=== PATIENT | female | born 1985 | race African-American/Black ===

== ENCOUNTER 2022-09-12 08:38 | Emergency (ER) | payer OTHER, SELFPAY ==
[2022-09-12] VITALS (9 sets, daily range): BP systolic 107–122; BP diastolic 73–81; PULSE 76–92; RESP 17–25; TEMP 36.4–36.6; O2SAT 74–100
[2022-09-12] MEDS: LACTATED RINGERS 1,000 ML 100 ML IV CONT (08:58)
--- NOTE | 2022-09-12 09:05 | ED.GENADULT ---
HPI - General Adult General Chief complaint: Unspecified Stated complaint: sickle cell crisis Time Seen by Provider: 09/12/22 09:05 Source: patient Mode of arrival: ambulatory Limitations: no limitations History of Present Illness HPI narrative: 37-year-old female who is diagnosed with sickle cell disease since , 16 weeks , History of pulmonary embolism on Lovenox presents to the ER with A 2 week history of -- pain in her arms and legs. she feels it is similar to her vaso-occlusive crisis pain. The patient has the history of sickle cell anemia and has had her last transfusion in 2019. She has monthly pain episodes which have improved still she became . Patient is not on any prophylactic medication. No recent fever. No chest pain or shortness of breath. the patient is A2. 1st was a miscarriage. Second progressed to 32 weeks and complicated by preeclampsia leading to early delivery. Third was medical termination of . The patient had 3 ultrasounds and did not note any abnormality. Onset (ago): week(s) ( symptoms started 2 weeks ago.) Location: upper extremity and lower extremity Radiation: non-radiation Severity: severe Quality: aching Pain Consistency: constant Relieving factors: none Exacerbating factors: none Associated symptoms: denies other symptoms Treatments prior to arrival: none Related Data Home Medications Medication Instructions Recorded Confirmed Unable to Obtain Home Medications 09/12/22 09/12/22 Allergies Allergy/AdvReac Type Severity Reaction Status Date / Time No Known Allergies Allergy Verified 09/12/22 08:46 Review of Systems Review of Systems: All systems reviewed & are unremarkable except as noted in HPI and below Constitutional: Constitutional: Reports as per HPI, Reports no additional constitutional complaints, Reports body ache(s) and Reports malaise Eyes: Eyes: Reports as per HPI and Reports no additional eye complaints ENT: Reports system reviewed and no additional complaints, except as documented and Reports as per HPI Cardiovascular: Cardiovascular: Reports as per HPI and Reports no additional cardiovascular complaints Respiratory: Respiratory: Reports as per HPI and Reports no additional respiratory complaints Gastrointestinal: Gastrointestinal: Reports as per HPI and Reports no additional gastrointestinal complaints Genitourinary: Genitourinary: Reports no additional female genitourinary complaints and Reports as per HPI Comments: Sixteen weeks . Musculoskeletal: Musculoskeletal: Reports myalgias Comments: Pain of arms and legs. Integumentary/Breasts: Skin/Breast: Reports system reviewed and no additional complaints, except as docu and Reports as per HPI Neurologic: Reports system reviewed and no additional complaints, except as documented and Reports as per HPI Psychiatric: Psychiatric: Reports no additional psychiatric complaints and Reports as per HPI Endocrine: Endocrine: Reports no additional endocrine complaints and Reports as per HPI Hematologic/Lymphatic: Hematologic/Lymphatic: Reports no additional hematologic/lymphatic complaints and Reports as per HPI Allergic/Immunologic: Allergic/Immunologic: Reports no additional allergic/immunologic complaints and Reports as per HPI [facility] Past Medical History Medical History (Updated 09/12/22 @ 11:15 by Nimesh Lindquist MD) Sickle cell anemia Exam Const: General: cooperative, healthy appearing, comfortable and no acute distress Orientation/consciousness: oriented to person, oriented to place and oriented to time Limitations: no limitations HENMT: Head: normal to inspection, normocephalic and atraumatic Ears: hearing grossly normal bilaterally, external ears normal, TM's normal bilaterally and TM normal on the right Face/Nose/Sinus: Normal external nose present and Normal nares present Face and sinus: normal facial exam an
[2022-09-12] MEDS: ONDANSETRON INJ 4 MG/2 ML VIAL IV PUSH (09:38)
[2022-09-12] MEDS: LACTATED RINGERS 1,000 ML 999 ML IV CONT (09:39)
[2022-09-12] MEDS: MORPHINE SULFATE (*CRX) 2 MG/ML INJ IV PUSH (09:39)
[2022-09-12 09:52] LABS: Basophils Absolute Auto 0.09 K/mm3 (0.00-0.10); Eosinophils Absolute Auto 0.17 K/mm3 (0.02-0.50); Eosinophils Percent Auto 1.9 % (1.0-6.0); Hematocrit 24.8 % (35.0-49.0); Hemoglobin 9.2 g/dL (12.0-15.0); Immature Granulocyte Absolute 0.06 K/mm3 (0.00-0.00); Immature Granulocyte Percent A 0.7 % (0.0-0.0); Immature Platelet Fraction Pct 1.1 % (1.0-7.0); Lymphocytes Absolute Auto 2.99 K/mm3 (1.10-4.50); Lymphocytes Percent Auto 32.9 % (18.0-42.0); Mean Corpuscular HGB Conc 37.1 g/dL (32.0-36.0); Mean Corpuscular Hemoglobin 32.5 pg (27.0-31.0); Mean Corpuscular Volume 87.6 fL (78.0-102.0); Mean Platelet Volume 8.5 fl (9.2-11.8); Monocytes Absolute Auto 0.81 K/mm3 (0.10-0.90); Monocytes Percent Auto 8.9 % (2.0-11.0); Neutrophils Percent Auto 54.6 % (50.0-70.0); Nucleated Red Blood Cells Absolute Auto 0.15 K/mm3 (0.00-0.00); Nucleated Red Blood Cells Perc 1.7 % (0-0.0); Platelet Count Result 663 K/mm3 (150-420); Red Blood Count 2.83 M/mm3 (4.20-5.40); Red Cell Distribution Width 11.8 % (11.6-14.4); White Blood Count 9.1 K/mm3 (4.8-10.8)
[2022-09-12 09:53] LABS: Immature Reticulocyte Fraction 36.1 % (2.0-16.52); Reticulocyte Percent 6.09 % (0.50-1.50); Reticulocytes Absolute 0.17 M/mm3 (0.02-0.1)
[2022-09-12 10:09] LABS: Lactic Acid Reflex 0.6 mmol/L (0.4-2.0)
[2022-09-12 10:13] LABS: Appearance Urine Clear (Clear); Bilirubin Urine Negative (Negative); Blood Urine Negative (Negative); Color Urine Light Yellow (Yellow); Glucose Urine UA Negative (Negative); Ketones Urine Negative (Negative); Leukocyte Esterase Ur Trace LEU/UL (Negative); Nitrate Urine Negative (Negative); Protein Urine Negative (Negative); Urobilinogen Urine 0.2 mg/dL (0.2-1.0); pH Urine 6.5 (5.0-8.0)
[2022-09-12 10:17] LABS: Add Urine Microscopic? YES; Bacteria Urine 1+ /hpf; RBC Urine None seen /hpf (0-2); Squamous Epithelial Cell Urine Moderate /hpf (Few); WBC Urine 0-3 /hpf (0-3)
[2022-09-12 10:17] LABS: Creatine Kinase 46 U/L (26-192); Lactate Dehydrogenase 213 U/L (81-234); Lipase 33 U/L (16-77); Thyroid Stimulating Hormone 1.89 uIU/mL (0.36-3.74)
[2022-09-12 10:18] LABS: Alanine Aminotransferase 44 U/L (14-59); Albumin Level 3.2 g/dL (3.4-5.0); Alkaline Phosphatase 63 U/L (46-116); Anion Gap 12 mmol/L (8-16); Aspartate Amino Transferase 31 U/L (15-37); Bilirubin Direct 0.1 mg/dL (0-0.2); Bilirubin,Total 0.4 mg/dL (0.00-1.00); Blood Urea Nitrogen 6 mg/dL (7-18); Calcium 9.5 mg/dL (8.5-10.1); Carbon Dioxide 24 mmol/L (21-32); Chloride 103 mmol/L (98-108); Estimated Glomerular Filt Rate > 60; Ferritin 255 ng/mL (8-252); Glucose 86 mg/dL (70-99); Iron 94 ug/dL (50-170); Osmolality Calculated 284 mOsm/kg (285-295); Percent Iron Saturation 29 % (12-57); Potassium 4.3 mmol/L (3.5-5.1); Sodium 139 mmol/L (136-145); Total Protein 7.9 g/dL (6.4-8.2); Troponin I 5.4 ng/L (0.00-60.4)
[2022-09-12 10:29] LABS: Influenza A QL RT-PCR Negative (Negative); Influenza B QL RT-PCR Negative (Negative); SARS-CoV-2 RNA PCR Negative (Negative)
[2022-09-12 10:31] LABS: RSV RNA, RT-PCR Negative (Negative)
[2022-09-12 11:02] LABS: Occult Blood Negative (Negative)
[2022-09-12 11:06] LABS: Folic Acid > 20.0 ng/mL (8.6->20); Vitamin B12 523 pg/mL (193-986)
--- NOTE | 2022-09-12 11:12 | PC.NURSE ---
Patient refused HIV testing at this time. refusal signed.
== END 2022-09-12 11:30 | disposition home or self-care (01) ==
PROVIDERS: Emergency Provider Internal Medicine Critical Care Medicine
DX: O99.012 Anemia complicating pregnancy, second trimester (principal); M79.602 Pain in left arm; M79.601 Pain in right arm; M79.605 Pain in left leg; M79.604 Pain in right leg; Z86.711 Personal history of pulmonary embolism; Z20.822 Contact with and (suspected) exposure to COVID-19; Z3A.16 16 weeks gestation of pregnancy
CPT/HCPCS: 36415; 80048; 80076; 81001; 82550; 82607; 82728; 82746; 83540; 83550; 83605; 83615; 83690; 84443; 84484; 85025; 85046; 85055; 87637; 96361; 96374; 96375; 99284; J2270; J2405; J7120

== ENCOUNTER 2022-11-15 06:38 | Emergency (ER) | payer OTHER, SELFPAY ==
--- NOTE | 2022-11-15 06:40 | ED.GENADULT ---
HPI - General Adult General Stated complaint: Pain in both arms/Chest Pain Time Seen by Provider: 11/15/22 06:40 Related Data Home Medications Medication Instructions Recorded Confirmed Unable to Obtain Home Medications 09/12/22 09/12/22 Allergies Allergy/AdvReac Type Severity Reaction Status Date / Time No Known Allergies Allergy Verified 09/12/22 08:46 [facility] Past Medical History Medical History (Updated 09/13/22 @ 00:00 by Chidi Sharpe) Sickle cell anemia Discharge Plan Discharge Prescriptions: No Action Unable to Obtain Home Medications Follow-up/Referrals: UNKNOWN,DOCTOR [Primary Care Provider] -
--- NOTE | 2022-11-15 06:44 | ECG_ITS ---
Measurements Intervals [place] Rate: 92 P: 42 SC: 168 QRS: 60 QRSD: 71 T: 43 QT: 352 QTc: 435 Interpretive Statements SINUS RHYTHM BORDERLINE T WAVE ABNORMALITY- ANTERIOR LEADS BORDERLINE ECG NO PREVIOUS ECG AVAILABLE FOR COMPARISON Electronically Signed On 11-15-2022 8:28:08 CDT by Víctor Nickerson D.O.
[2022-11-15 06:50] VITALS: BP 101/69; PULSE 87; RESP 18; TEMP 36.8; O2SAT 95
[2022-11-15 07:01] LABS: Hematocrit 23.6 % (35.0-49.0); Hemoglobin 8.7 g/dL (12.0-15.0); Immature Platelet Fraction Pct 1.4 % (1.0-7.0); Immature Reticulocyte Fraction 36.1 % (2.0-16.52); Mean Corpuscular HGB Conc 36.9 g/dL (32.0-36.0); Mean Corpuscular Hemoglobin 33.6 pg (27.0-31.0); Mean Corpuscular Volume 91.1 fL (78.0-102.0); Mean Platelet Volume 8.9 fl (9.2-11.8); Platelet Count Result 556 K/mm3 (150-420); Red Blood Count 2.59 M/mm3 (4.20-5.40); Red Cell Distribution Width 12.5 % (11.6-14.4); Reticulocyte Hemoglobin Conten 33.7 pg (28.0-35.0); Reticulocyte Percent 7.87 % (0.50-1.50); White Blood Count 11.7 K/mm3 (4.8-10.8)
[2022-11-15 07:15] LABS: Alanine Aminotransferase 26 U/L (14-59); Albumin Level 2.8 g/dL (3.4-5.0); Alkaline Phosphatase 58 U/L (46-116); Anion Gap 9 mmol/L (8-16); Aspartate Amino Transferase 23 U/L (15-37); Bilirubin,Total 0.5 mg/dL (0.00-1.00); Blood Urea Nitrogen 7 mg/dL (7-18); Calcium 9.5 mg/dL (8.5-10.1); Carbon Dioxide 24 mmol/L (21-32); Chloride 104 mmol/L (98-108); Estimated CRCL calculation 140 ml/min; Estimated Glomerular Filt Rate > 60; Glucose 95 mg/dL (70-99); Osmolality Calculated 282 mOsm/kg (285-295); Sodium 137 mmol/L (136-145); Total Protein 7.3 g/dL (6.4-8.2)
[2022-11-15 07:30] VITALS: BP 100/69; PULSE 94; RESP 20; O2SAT 95
--- NOTE | 2022-11-15 07:39 | ED.GENADULT ---
HPI - General Adult General Chief complaint: Extremity Problem,Nontraumatic Stated complaint: Pain in both arms/Chest Pain Time Seen by Provider: 11/15/22 06:40 History of Present Illness HPI narrative: 37yo woman with sickle cell disease at approximately 24 weeks gestation presents with pain in her thighs, shoulders that started 2 days ago and pain in the chest that started overnight. No cough, fever, dyspnea, leg swelling. Has Ob established in [facility] but now lives in [place] and wants to see someone closer to home. Feels baby move. No pelvic pain, vaginal bleeding, or discharge. Related Data Home Medications Medication Instructions Recorded Confirmed Adult Low Dose Aspirin 11/15/22 Lovenox 11/15/22 Allergies Allergy/AdvReac Type Severity Reaction Status Date / Time No Known Allergies Allergy Verified 11/15/22 10:20 Review of Systems Review of Systems: All systems reviewed & are unremarkable except as noted in HPI and below Constitutional: Constitutional: Denies fever(s) Cardiovascular: Cardiovascular: Reports chest pain Respiratory: Respiratory: Denies chest congestion, Denies cough and Denies dyspnea [facility] Past Medical History Medical History Sickle cell anemia Exam Const: General: healthy appearing, no acute distress and alert Eyes: Conjunctivae: conjunctivae normal Neck: Other: supple Chest: Chest palpation & inspection: normal inspection of the chest and no tenderness Resp: Effort & Inspection: normal respiratory effort and not labored Auscultation: clear to auscultation bilaterally Cardio: Rate: regular rate Rhythm: regular rhythm Heart sounds: no murmurs GI: Inspection: non-distended Skin: General skin exam: normal color, no jaundice and no pallor Neuro: General: patient oriented x3 and no focal motor deficits Speech: normal speech Extrem: General: normal to inspection and no clubbing, cyanosis or edema Course Course Emergency Course: numerous attempts to send prescriptions electronically failed. One [place] script and One Ondansetron script given to pt. Vital Signs Vital signs: Vital Signs Temperature 36.8 C 11/15/22 06:50 Pulse Rate 87 11/15/22 06:50 Respiratory Rate 18 11/15/22 06:50 Blood Pressure 101/69 11/15/22 06:50 Pulse Oximetry 95 11/15/22 06:50 Oxygen Delivery Room Air 11/15/22 06:50 Temperature 37.0 C 11/15/22 10:13 Pulse Rate 89 11/15/22 10:13 Respiratory Rate 19 11/15/22 10:13 Blood Pressure 107/77 11/15/22 10:13 Pulse Oximetry 98 11/15/22 10:13 Oxygen Delivery Room Air 11/15/22 10:13 Medical Decision Making MDM Narrative Medical decision making narrative: extremity and chest pain DDx likely sickle cell pain crisis, dehydration, myalgia, no evidence of acute chest, acute coronary syndrome. HEART score = 0, but is not applicable. Vital Signs Vital Signs: Vital Signs Temperature 36.8 C 11/15/22 06:50 Pulse Rate 87 11/15/22 06:50 Respiratory Rate 18 11/15/22 06:50 Blood Pressure 101/69 11/15/22 06:50 Pulse Oximetry 95 11/15/22 06:50 Oxygen Delivery Room Air 11/15/22 06:50 Temperature 37.0 C 11/15/22 10:13 Pulse Rate 89 11/15/22 10:13 Respiratory Rate 19 11/15/22 10:13 Blood Pressure 107/77 11/15/22 10:13 Pulse Oximetry 98 11/15/22 10:13 Oxygen Delivery Room Air 11/15/22 10:13 Lab Data Lab results reviewed: Yes I reviewed the patient's lab results. 11/15/22 06:44 11/15/22 06:44 Labs: Lab Results 11/15/22 Range/Units 06:44 WBC 11.7 H (4.8-10.8) K/mm3 RBC 2.59 L (4.20-5.40) M/mm3 Hgb 8.7 L (12.0-15.0) g/dL Hct 23.6 L (35.0-49.0) % MCV 91.1 (78.0-102.0) fL MCH 33.6 H (27.0-31.0) pg MCHC 36.9 H (32.0-36.0) g/dL RDW 12.5 (11.6-14.4) % Plt Count 556 H (150-420) K/mm3 MPV 8.9 L (9.2-11.8) fl
[2022-11-15 07:44] LABS: HIV 1 P24 AG Negative (Negative); HIV 1/2 AB Negative (Negative)
[2022-11-15] MEDS: LACTATED RINGERS 1,000 ML 999 ML IV CONT (07:44)
[2022-11-15] MEDS: HYDROmorphone HCL INJ (*CRX) 2 MG/ML VIAL 1 MG IV PUSH (07:44)
[2022-11-15] MEDS: SODIUM CHLORIDE 0.9% IV 1,000 ML 999 ML IV CONT (07:44)
[2022-11-15] MEDS: HYDROcodone/acetaminophen (*CRX) 5-325 MG TABLET 2 TAB PO (07:47)
[2022-11-15] MEDS: ONDANSETRON INJ 4 MG/2 ML VIAL 8 MG IV PUSH (07:49)
[2022-11-15 08:00] VITALS: BP 102/82; PULSE 91; RESP 20; O2SAT 93
[2022-11-15 09:00] VITALS: BP 105/74; PULSE 85; RESP 20; O2SAT 96
[2022-11-15 09:30] VITALS: BP 109/72; PULSE 77; RESP 20; O2SAT 95
[2022-11-15 10:13] VITALS: BP 107/77; PULSE 89; RESP 19; TEMP 37; O2SAT 98
--- NOTE | 2022-11-15 11:08 | PC.NURSE ---
pt given dr lists for OB at [facility]
== END 2022-11-15 11:00 | disposition home or self-care (01) ==
PROVIDERS: Emergency Medicine; Emergency Provider Emergency Medicine
DX: O99.012 Anemia complicating pregnancy, second trimester (principal); D57.00 Hb-SS disease with crisis, unspecified; Z3A.24 24 weeks gestation of pregnancy
CPT/HCPCS: 36415; 80053; 85027; 85046; 85055; 86703; 86850; 86900; 86901; 93005; 96361; 96374; 96375; 99284; A9270; J1170; J2405; J7030; J7120

== ENCOUNTER 2022-12-20 15:20 | Emergency (ER) | payer OTHER, SELFPAY ==
[2022-12-20 15:20] VITALS: BP 111/75; PULSE 103; RESP 18; TEMP 37.4; O2SAT 96
--- NOTE | 2022-12-20 15:54 | ED.GENADULT ---
HPI - General Adult General Chief complaint: Extremity Problem,Nontraumatic Stated complaint: sickle cell crisis Time Seen by Provider: 12/20/22 15:28 Source: patient Mode of arrival: ambulatory Limitations: no limitations History of Present Illness HPI narrative: 37-year-old female with a history of sickle cell anemia since with monthly extremity and back pain, pulmonary embolism on Lovenox, A2 and 29 weeks presents to the ER with -- bilateral leg pain. no swelling. The pain is located in front of both the legs for the past 1 week. The patient is on Lovenox on a continuous basis Onset (ago): week(s) ( started 1 week ago) Location: lower extremity Radiation: non-radiation Quality: aching Pain Consistency: constant Relieving factors: none Exacerbating factors: none Associated symptoms: denies other symptoms Treatments prior to arrival: none Related Data Home Medications Medication Instructions Recorded Confirmed Adult Low Dose Aspirin 81 mg PO DAILY 11/15/22 12/20/22 enoxaparin 80 mg/0.8 mL 80 mg subcut BID 12/20/22 12/20/22 subcutaneous syringe Allergies Allergy/AdvReac Type Severity Reaction Status Date / Time No Known Allergies Allergy Verified 12/20/22 15:59 Review of Systems Review of Systems: All systems reviewed & are unremarkable except as noted in HPI and below Constitutional: Constitutional: Reports as per HPI and Reports no additional constitutional complaints Eyes: Eyes: Reports as per HPI and Reports no additional eye complaints ENT: Reports system reviewed and no additional complaints, except as documented and Reports as per HPI Cardiovascular: Cardiovascular: Reports as per HPI and Reports no additional cardiovascular complaints Respiratory: Respiratory: Reports as per HPI and Reports no additional respiratory complaints Gastrointestinal: Gastrointestinal: Reports as per HPI and Reports no additional gastrointestinal complaints Genitourinary: Comments: abdominal distension with active movements no dysuria or hematuria Musculoskeletal: Comments: bilateral leg pain Integumentary/Breasts: Skin/Breast: Reports system reviewed and no additional complaints, except as docu Neurologic: Reports system reviewed and no additional complaints, except as documented and Reports as per HPI Psychiatric: Psychiatric: Reports no additional psychiatric complaints and Reports as per HPI Endocrine: Endocrine: Reports no additional endocrine complaints and Reports as per HPI Hematologic/Lymphatic: Hematologic/Lymphatic: Reports no additional hematologic/lymphatic complaints and Reports as per HPI Allergic/Immunologic: Allergic/Immunologic: Reports no additional allergic/immunologic complaints and Reports as per [facility] Past Medical History Medical History (Updated 12/20/22 @ 17:41 by Nimesh Lindquist MD) Pulmonary embolism Sickle cell anemia Exam Narrative: 29 weeks anemia history of sickle cell anemia. Unlikely to be severe hemolysis as he has normal LDH and bilirubin. She does have elevated retic count bilateral leg pain Const: General: no acute distress Nutritional Appearance: well nourished Orientation/consciousness: patient oriented x3 Limitations: no limitations HENMT: Head: normal to inspection Ears: external ears normal Face/Nose/Sinus: Normal external nose present Face and sinus: normal facial exam Mouth: Yes Normal oral and palatal mucosa present Throat: posterior oropharynx normal Eyes: Conjunctivae: conjunctivae normal Pupils: Equal, round and reactive pupils present EOM: EOMs intact bilaterally Direct Ophthalmoscopy: no photophobia Neck: Neck: normal visual inspection, no lymphadenopathy and no meningeal signs Chest: Chest palpation & inspection: normal inspection of the chest Resp: Effort & Inspection: normal respiratory effort Auscultation: clear to auscultation bilaterally Cardio: Rate: regula
[2022-12-20 16:36] LABS: Appearance Urine Clear (Clear); Bilirubin Urine Negative (Negative); Blood Urine Negative (Negative); Color Urine Light Yellow (Yellow); Glucose Urine UA Negative (Negative); Ketones Urine Negative (Negative); Leukocyte Esterase Ur Trace LEU/UL (Negative); Nitrate Urine Negative (Negative); Protein Urine Negative (Negative)
[2022-12-20 16:37] LABS: Basophils Absolute Auto 0.07 K/mm3 (0.00-0.10); Basophils Percent Auto 0.6 % (0.0-1.0); Eosinophils Absolute Auto 0.67 K/mm3 (0.02-0.50); Eosinophils Percent Auto 5.4 % (1.0-6.0); Immature Granulocyte Percent A 0.8 % (0.0-0.0); Immature Platelet Fraction Pct 1.7 % (1.0-7.0); Immature Reticulocyte Fraction 36.6 % (2.0-16.52); Lymphocytes Percent Auto 26.7 % (18.0-42.0); Mean Corpuscular HGB Conc 37.5 g/dL (32.0-36.0); Mean Corpuscular Hemoglobin 35.2 pg (27.0-31.0); Mean Corpuscular Volume 93.8 fL (78.0-102.0); Mean Platelet Volume 9.1 fl (9.2-11.8); Monocytes Absolute Auto 0.78 K/mm3 (0.10-0.90); Monocytes Percent Auto 6.3 % (2.0-11.0); Neutrophils Absolute Auto 7.4 K/mm3 (1.7-7.2); Neutrophils Percent Auto 60.2 % (50.0-70.0); Nucleated Red Blood Cells Absolute Auto 0.42 K/mm3 (0.00-0.00); Nucleated Red Blood Cells Perc 3.4 % (0-0.0); Platelet Count Result 577 K/mm3 (150-420); Red Blood Count 2.56 M/mm3 (4.20-5.40); Red Cell Distribution Width 12.1 % (11.6-14.4); Reticulocyte Hemoglobin Conten 33.4 pg (28.0-35.0); Reticulocyte Percent 8.63 % (0.50-1.50); Reticulocytes Absolute 0.22 M/mm3 (0.02-0.1); White Blood Count 12.4 K/mm3 (4.8-10.8)
[2022-12-20 16:41] LABS: Add Urine Microscopic? NO
[2022-12-20 16:49] LABS: INR 0.9; Partial Thromboplastin Time 23.1 SEC (23.90-30.70)
[2022-12-20 16:50] LABS: Anion Gap 10 mmol/L (8-16); Blood Urea Nitrogen 6 mg/dL (7-18); Carbon Dioxide 25 mmol/L (21-32); Chloride 102 mmol/L (98-108); Estimated CRCL calculation 149 ml/min; Estimated Glomerular Filt Rate > 60; Glucose 83 mg/dL (70-99); Osmolality Calculated 280 mOsm/kg (285-295); Potassium 4.1 mmol/L (3.5-5.1); Sodium 137 mmol/L (136-145)
[2022-12-20 16:51] LABS: Alanine Aminotransferase 24 U/L (14-59); Albumin Level 2.8 g/dL (3.4-5.0); Alkaline Phosphatase 69 U/L (46-116); Aspartate Amino Transferase 24 U/L (15-37); Bilirubin Direct 0.2 mg/dL (0-0.2); Bilirubin,Total 0.6 mg/dL (0.00-1.00); Calcium 9.5 mg/dL (8.5-10.1); Lactate Dehydrogenase 201 U/L (81-234); Lipase 33 U/L (16-77); Total Protein 8.2 g/dL (6.4-8.2)
[2022-12-20 16:54] LABS: Lactic Acid Reflex 0.5 mmol/L (0.4-2.0)
[2022-12-20] MEDS: HYDROcodone/acetaminophen (*CRX) 5-325 MG TABLET 1 TAB PO (17:52)
--- NOTE | 2022-12-20 17:55 | PC.NURSE ---
PT IS REQUESTING ZOFRAN AT THIS TIME. TO NOTIFY ERP.
[2022-12-20] MEDS: ONDANSETRON HCL ODT 4 MG TABLET PO (18:17)
[2022-12-20 18:20] VITALS: BP 109/76; PULSE 80; RESP 18; O2SAT 99
== END 2022-12-20 18:20 | disposition home or self-care (01) ==
PROVIDERS: Emergency Provider Internal Medicine Critical Care Medicine
DX: O99.013 Anemia complicating pregnancy, third trimester (principal); D57.1 Sickle-cell disease without crisis; O26.893 Other specified pregnancy related conditions, third trimester; I27.82 Chronic pulmonary embolism; M79.604 Pain in right leg; M79.605 Pain in left leg; Z3A.29 29 weeks gestation of pregnancy
CPT/HCPCS: 36415; 80048; 80076; 81003; 83605; 83615; 83690; 85025; 85046; 85055; 85610; 85730; 99283; A9270

== ENCOUNTER 2022-12-24 13:49 | Emergency (ER) | payer OTHER, SELFPAY ==
[2022-12-24 13:55] VITALS: BP 126/80; PULSE 118; RESP 17; TEMP 36.6; O2SAT 97
[2022-12-24] MEDS: SODIUM CHLORIDE 0.9% IV 1,000 ML 999 ML IV CONT (14:08)
[2022-12-24 17:09] LABS: Hematocrit 22.9 % (35.0-49.0); Hemoglobin 8.5 g/dL (12.0-15.0); Immature Platelet Fraction Pct 1.4 % (1.0-7.0); Immature Reticulocyte Fraction 40.5 % (2.0-16.52); Mean Corpuscular HGB Conc 37.1 g/dL (32.0-36.0); Mean Corpuscular Hemoglobin 34.8 pg (27.0-31.0); Mean Corpuscular Volume 93.9 fL (78.0-102.0); Mean Platelet Volume 9.3 fl (9.2-11.8); Platelet Count Result 574 K/mm3 (150-420); Red Blood Count 2.44 M/mm3 (4.20-5.40); Red Cell Distribution Width 12.4 % (11.6-14.4); Reticulocyte Hemoglobin Conten 34.8 pg (28.0-35.0); Reticulocytes Absolute 0.22 M/mm3 (0.02-0.1)
[2022-12-24] MEDS: HYDROcodone/acetaminophen (*CRX) 5-325 MG TABLET 1 TAB PO (17:11)
[2022-12-24 17:24] LABS: Alanine Aminotransferase 32 U/L (14-59); Albumin Level 2.6 g/dL (3.4-5.0); Alkaline Phosphatase 70 U/L (46-116); Anion Gap 11 mmol/L (8-16); Aspartate Amino Transferase 29 U/L (15-37); Bilirubin,Total 0.6 mg/dL (0.00-1.00); Blood Urea Nitrogen 4 mg/dL (7-18); Carbon Dioxide 23 mmol/L (21-32); Chloride 104 mmol/L (98-108); Estimated Glomerular Filt Rate > 60; Glucose 86 mg/dL (70-99); Lactate Dehydrogenase 181 U/L (81-234); Osmolality Calculated 281 mOsm/kg (285-295); Potassium 3.8 mmol/L (3.5-5.1); Sodium 138 mmol/L (136-145); Total Protein 7.1 g/dL (6.4-8.2)
--- NOTE | 2022-12-24 19:53 | ED.GENADULT ---
HPI - General Adult General Chief complaint: Extremity Problem,Nontraumatic Stated complaint: Pain associated with /sickle cell Time Seen by Provider: 12/24/22 13:54 Source: patient Mode of arrival: ambulatory Limitations: no limitations History of Present Illness HPI narrative: patient is a 37-year-old black female 30 week intrauterine EDC March 05, 2023 complains of chronic villavicencio pain bilaterally off and on since she has had sickle cell disease. 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 Hope about 3 weeks ago she has a history of PE 1 and half to 2 years ago was on her Xarelto now is on Lovenox 80 mg twice a day. She denies any cough or shortness of breath problems eating or drinking voiding or stooling shortness of breath fever sore throat runny nose bleeding or bruising rash or itching lumps or bumps or swelling. Denies any pain anywhere else denies any pain or ankles her knees. She has seen in the ED 4 days ago was given Norris with some relief and told to follow-up with her [employer] which she has not done yet. Related Data Home Medications Medication Instructions Recorded Confirmed Adult Low Dose Aspirin 81 mg PO DAILY 11/15/22 12/24/22 enoxaparin 80 mg/0.8 mL 80 mg subcut BID 12/20/22 12/24/22 subcutaneous syringe Allergies Allergy/AdvReac Type Severity Reaction Status Date / Time No Known Allergies Allergy Verified 12/24/22 14:11 [facility] Past Medical History Medical History Pulmonary embolism Sickle cell anemia Comments She lives in here she has no car she took a cab here. Exam Narrative: black female no apparent distress.? Head normocephalic, atraumatic.? Eyes conjunctiva pink sclera nonicteric.? Extraocular movements are intact.? Ears externally normal.? Oropharynx is clear with moist mucous membranes without exudates.? Neck is supple nontender no lymphadenopathy.? Back is nontender.? Lungs are clear.? Heart is regular rate and rhythm without murmurs gallops or rubs.? Chest wall is nontender.? Abdomen is soft and nontender with gravid uterus consistent with 30 week intrauterine heart tones were 134. She had no CVA tenderness no abdominal bruits.? Extremities no cyanosis clubbing or edema. lower extremities feet and ankles were normal DP and PT pulses are +2 equal bilaterally. There is no calf tenderness or villavicencio tenderness. Both knees were normal full range of motion without any swelling. Stable to all stresses.? Skin is warm and dry without rashes or lesions.? Neurological patient is alert and oriented x4.? Motor and sensory grossly intact.? Gait is normal. Course Vital Signs Vital signs: Vital Signs Temperature 36.6 C 12/24/22 13:55 Pulse Rate 118 H 12/24/22 13:55 Respiratory Rate 17 12/24/22 13:55 Blood Pressure 126/80 12/24/22 13:55 Pulse Oximetry 97 12/24/22 13:55 Oxygen Delivery Room Air 12/24/22 13:55 Temperature 36.6 C 12/24/22 13:55 Pulse Rate 118 H 12/24/22 13:55 Respiratory Rate 17 12/24/22 13:55 Blood Pressure 126/80 12/24/22 13:55 Pulse Oximetry 97 12/24/22 13:55 Oxygen Delivery Room Air 12/24/22 13:55 Medical Decision Making [facility] Narrative Medical decision making narrative: Patient is placed in room 4 history and physical were performed. She was given Norris 5. Independent Historian: ? Patient Differential Dx includes but not limited to:? sickle cell crisis DVT muscle strain Medications were Reviewed:? medications reviewed Independently Interpreted by me:? ?? External Source Review:?? ED visit from previous H&H was 9 and 24 with a white count 12.4 reticulocyte was elevated LDL was normal Social Situation Impacting Patients Care:? ? patient has no transportation has to rely on cabs Shared decision Making:?? evaluation discussed with patient all questions were asked and answered and Jenna
[2022-12-24] MEDS: HYDROmorphone HCL INJ (*CRX) 2 MG/ML VIAL 0.5 MG IV PUSH (19:58)
[2022-12-24 22:18] VITALS: BP 109/79; PULSE 83; RESP 17; TEMP 36.7; O2SAT 97
== END 2022-12-24 22:21 | disposition home or self-care (01) ==
PROVIDERS: Emergency Provider Emergency Medicine
DX: O99.013 Anemia complicating pregnancy, third trimester (principal); D57.1 Sickle-cell disease without crisis; O26.893 Other specified pregnancy related conditions, third trimester; M79.604 Pain in right leg; Z3A.30 30 weeks gestation of pregnancy
CPT/HCPCS: 36415; 80053; 83615; 85027; 85046; 85055; 96361; 96374; 99284; A9270; J1170; J7030